=== PATIENT | female | born 1955 | race Caucasian/White ===

== ENCOUNTER 2017-10-17 15:06 | Emergency (ER) | payer MEDICAID ==
--- NOTE | 2017-10-17 15:51 | XRAY Preliminary Report ---
Exam: XR FINGER(S) RT IMPRESSION: No acute disease. [facility] SITE ID: [id number]
--- NOTE | 2017-10-17 15:54 | XRAY Report ---
EXAM: RIGHT FIRST Digit Radiography EXAM DATE: 10/17/2017 03:37 PM. CLINICAL HISTORY: Trauma, pain. COMPARISON: None. TECHNIQUE: 3 views. FINDINGS: Bones: Last exam. No definite fracture or other bone lesion. Joints: Mild degenerative changes in the first CMC joint. Soft Tissues: Unremarkable. IMPRESSION: No acute disease. [facility] Referring Provider Line: [phone] SITE ID: [id number]
[2017-10-17] MEDS ORDERED: LIDOCAINE 2% 10 ML MDV ONE (18:03)
[2017-10-17] MEDS ORDERED: TETANUS/DIPHTHERIA/PERTUSSIS 0.5 ML SYRINGE IM ONE ×2 (18:05→18:16)
--- NOTE | 2017-10-17 18:49 | ED Physician Documentation ---
History of Present Illness - Stated complaint Stated Complaint: L THUMB LAC - Chief complaint Chief Complaint: Ext Problem - History obtained from History obtained from: Patient (pt is here for evaluation of a right thumb crush injury and laceration. occured just prior to arrival while moving a table.) - History of Present Illness Timing: Prior to arrival Review of Systems Skin: reports: Laceration (s) Musculoskeletal: reports: Joint pain (right thumb), Joint swelling (right thumb) Neurologic: reports: Other (no numbness or tingling to the right hand.) PD PAST MEDICAL HISTORY - Past Medical History Past Medical History: Yes Endocrine/Autoimmune: HyPOthyroidism - Past Surgical History Past Surgical History: No - Present Medications Home Medications: Ambulatory Orders Medication Instructions Recorded Confirmed Cetirizine [ZyrTEC] 10 mg PO DAILY 10/17/17 10/17/17 Citalopram [CeleXA] 0 mg PO DAILY 10/17/17 10/17/17 Levothyroxine Sodium 175 mg PO DAILY 10/17/17 10/17/17 - Allergies Allergies/Adverse Reactions: Allergies Allergy/AdvReac Type Severity Reaction Status Date / Time No Known Drug Allergies Allergy Verified 10/17/17 15:19 - Social History Does the pt smoke?: No Smoking Status: Never smoker Does the pt drink ETOH?: Yes Does the pt have substance abuse?: No - Immunizations Immunizations: TDAP >10years/unknown - POLST Patient has POLST: No PD ED PE NORMAL - Vitals Vital signs reviewed: Yes - General General: Alert and oriented X 3, No acute distress - Cardiac Cardiac: Strong equal pulses (radial ) - Derm Derm: Other (3 lacerations to the pad of the right thumb. no active bleeding.) - Extremities Extremities: Other (TTP over the tip of the right thumb. pain with movement of the IP joint of the right thumb. ) - Neuro Neuro: Other (sensation intact to tlight touch to the right hand. ) Results - Vitals Vitals: Vital Signs - 24 hr 10/17/17 15:16 Temperature 36.8 C Heart Rate 71 Respiratory 16 Rate Blood Pressure 129/86 H O2 Saturation 98 Oxygen O2 Source Room air - Rads (name of study) right thumb Radiology: Final report received Procedures - Laceration (location) thumb #1 Length in cm: 2 Wound type: Linear Neurovascular status: Sensory intact, Motor intact Anesthesia: Lidocaine 1% Wound Preparation: Irrigated copiously NS Skin layer closure: Nylon, Size #-0 - enter number (5-0), Sutures - enter # (4) Other: Patient tolerated well, No complications, Dressing applied, Tetanus UTD thumb # 2 Length in cm: 3 Wound type: Linear Neurovascular status: Sensory intact, Motor intact Tendon involvement: Other Anesthesia: Lidocaine 1% Wound Preparation: Irrigated copiously NS Skin layer closure: Nylon, Size #-0 - enter number (5-0), Sutures - enter # (7) Other: Patient tolerated well, No complications, Dressing applied, Tetanus UTD Thumb # 3 Wound type: Linear Neurovascular status: Sensory intact, Motor intact Anesthesia: Lidocaine 1% Wound Preparation: Irrigated copiously NS Skin layer closure: Nylon, Size #-0 - enter number (5), Sutures - enter # (2) Other: Patient tolerated well, No complications, Dressing applied, Tetanus UTD PD MEDICAL DECISION MAKING - ED course Complexity details: d/w patient ED course: no fractures on the X-ray. lacerations closed as above. Pt given care instructions and return precautions. Departure - Departure Disposition: 01 Home, Self Care Clinical Impression: Laceration of thumb Condition: Good Instructions: ED Laceration Hand Follow-Up: Primary, care provider [Other] Comments: Keep the thumb covered for the next 24 hours then you can remove the bandage and wash your hands as normal. do not soak your hand. have the stitches removed in 10 days. Return to the ER for any new or worsening symptoms.
[2017-10-17 19:07] VITALS: BP 162/81
[2017-10-17] MEDS ORDERED: HYDROcod/ACETAM 5/325 MG TABLET PO STA (19:14)
[2017-10-17] MEDS ORDERED: HYDROcod/ACETAM 5/325 MG TABLET ONE (19:21)
== END 2017-10-17 19:17 | disposition home or self-care (01) ==
LOC: ED 15:06
DX: S61.012A Laceration without foreign body of left thumb without damage to nail, initial encounter (principal); W23.0XXA Caught, crushed, jammed, or pinched between moving objects, initial encounter; E03.9 Hypothyroidism, unspecified; Z23 Encounter for immunization
CPT/HCPCS: 12002; 73140; 90471; 90715; 99283; A9270

== ENCOUNTER 2017-11-01 16:06 | Emergency (ER) | payer MEDICAID ==
[2017-11-01 16:16] VITALS: BP 118/74
--- NOTE | 2017-11-01 16:30 | ED Physician Documentation ---
PD HPI WOUND RECHECK - Stated complaint Stated Complaint: SUTURE REMOVAL RT THUMB - Chief complaint Chief Complaint: Laceration - Histroy obtained from History obtained from: Patient - History of Present Illness Location: Right Hand (R thumb suture removal) Timing - onset: How many weeks ago (2) Pain level max: 0 Pain level now: 0 Associated symptoms: No: Fever, Redness, Swelling, Drainage, Pain Recently seen: Emergency Dept (sutures placed in the ED 2 weeks ago.) Review of Systems Constitutional: denies: Fever PD PAST MEDICAL HISTORY - Past Medical History Past Medical History: Yes Endocrine/Autoimmune: HyPOthyroidism - Past Surgical History Past Surgical History: No - Present Medications Home Medications: Ambulatory Orders Medication Instructions Recorded Confirmed Cetirizine [ZyrTEC] 10 mg PO DAILY 10/17/17 10/17/17 Citalopram [CeleXA] 0 mg PO DAILY 10/17/17 10/17/17 Levothyroxine Sodium 175 mg PO DAILY 10/17/17 10/17/17 - Allergies Allergies/Adverse Reactions: Allergies Allergy/AdvReac Type Severity Reaction Status Date / Time No Known Drug Allergies Allergy Verified 11/01/17 16:16 - Social History Does the pt smoke?: No Smoking Status: Never smoker Does the pt drink ETOH?: Yes Does the pt have substance abuse?: No - Immunizations Immunizations: TDAP >10years/unknown - POLST Patient has POLST: No PD ED PE NORMAL - Vitals Vital signs reviewed: Yes - General General: Alert and oriented X 3 - Derm Derm: Warm and dry - Extremities Extremities: Other (R thumb - 3 lacerations to the R thumb. Well healed. No signs of infection. NVI.) - Neuro Neuro: Alert and oriented X 3 Results - Vitals Vitals: Vital Signs - 24 hr 11/01/17 16:13 Temperature 36.3 C L Heart Rate 66 Respiratory 16 Rate Blood Pressure 118/74 O2 Saturation 97 Oxygen O2 Source Room air PD MEDICAL DECISION MAKING - ED course Complexity details: considered differential, d/w patient ED course: Sutures removed by RN. Tolerated well. Dressing applied. Wound care instructions given. Departure - Departure Disposition: 01 Home, Self Care Clinical Impression: Visit for suture removal Condition: Good Instructions: ED Wound Check Sutr Remove No Infec Follow-Up: your,doctor as needed [Other] Comments: Return if you worsen, especially for redness, swelling, or drainage from the wound. Discharge Date/Time: 11/01/17 16:43
== END 2017-11-01 16:43 | disposition home or self-care (01) ==
LOC: ED 16:06
DX: S61.011D Laceration without foreign body of right thumb without damage to nail, subsequent encounter (principal); X58.XXXD Exposure to other specified factors, subsequent encounter; E03.9 Hypothyroidism, unspecified
CPT/HCPCS: 99281; 99282

== ENCOUNTER 2019-02-12 14:42 | Outpatient (CLI) | payer MEDICARE ==
--- NOTE | 2019-02-13 09:00 | DEXA Report ---
Reason: ENCOUNTER FOR SCREENING FOR OSTEOPOROSIS Procedure Date: 02/12/2019 Accession Number: [id number] / [id number] Procedure: DEX - Dexa Spine and/or Hip CPT Code: FULL RESULT: EXAM: Dexa Spine and/or Hip DATE: 02/12/2019 3:15 PM CLINICAL HISTORY: ENCOUNTER FOR SCREENING FOR OSTEOPOROSIS TECHNIQUE: Dual energy x-ray absorptiometry (DXA) was performed on a [employer] System. Regions measured are the AP Spine, femoral neck, and if needed forearm. COMPARISON: None. In accordance with the International Society for Clinical Densitometry (ISCD) guidelines, data from previous exams may be reanalyzed using current recommendations and techniques. This is done to allow a more accurate basis for comparison with the current study. FINDINGS: The data for the lumbar spine is as follows: BMD (g/cm/cm) T-SCORE Z-SCORE REGION L1 0.983 -1.2 -0.2 L2 1.010 -1.6 -0.6 L3 1.019 -1.5 -0.5 L4 1.164 -0.3 0.7 TOTAL 1.050 -1.1 -0.1 NOTE: All evaluable vertebrae are used for classification The data for the hip is as follows: BMD (g/cm/cm) T-SCORE Z-SCORE REGION Neck 1.006 -0.2 0.8 TOTAL 0.931 -0.6 0.2 NOTE: The femoral neck or total proximal femur, whichever is lowest, is used for classification. IMPRESSION: THE WHO CLASSIFICATION BASED ON THE INTERNATIONAL REFERENCE STANDARD IS OSTEOPENIA. THE FRACTURE RISK IS INCREASED. RECOMMENDATION: Patients with diagnosis of osteoporosis or osteopenia should have regular bone mineral density assessment. For those eligible for Medicare, routine testing is allowed once every 2 years. Testing frequency can be increased for patients who have rapidly progressing disease or for those who are receiving medical therapy to restore bone mass. COMMENT: World Health Organization (WHO) definitions for osteoporosis and osteopenia: NORMAL BMD: T-score at -1.0 or higher, fracture risk is low OSTEOPENIA BMD: T-score between -1.0 and -2.5, fracture risk is increased. OSTEOPOROSIS BMD: T-score at -2.5 or lower, fracture risk is high. National Osteoporosis Foundation recommends: 1. Obtain adequate dietary calcium (at least 1200 mg per day) and vitamin D (400-800 international units per day). 2. Participate, as appropriate, in regular weightbearing and muscle-strengthening exercise. 3. Avoid tobacco use and reduce alcohol and caffeine intake. 4. For more detailed information see the website at www.NOF.org.
== END 2019-02-12 14:43 | disposition home or self-care (01) ==
LOC: DI 14:42
PROVIDERS: ATTEND Internal Medicine
DX: Z13.820 Encounter for screening for osteoporosis (principal); N95.8 Other specified menopausal and perimenopausal disorders; M85.89 Other specified disorders of bone density and structure, multiple sites
CPT/HCPCS: 77080

== ENCOUNTER 2019-07-03 18:34 | Outpatient (CLI) | payer MEDICARE | END 2019-07-03 18:35 | disposition EMS.NT | LOC: EMS 18:34 | PROVIDERS: ATTEND Surgery | DX: Z03.89 Encounter for observation for other suspected diseases and conditions ruled out (principal) ==

== ENCOUNTER 2022-04-03 15:51 | Outpatient (CLI) | payer MEDICARE | END 2022-04-03 15:52 | disposition critical access hospital (66) | LOC: EMS 15:51 | DX: S00.31XA Abrasion of nose, initial encounter (principal); S00.511A Abrasion of lip, initial encounter; S00.81XA Abrasion of other part of head, initial encounter; W01.0XXA Fall on same level from slipping, tripping and stumbling without subsequent striking against object, initial encounter; Y92.838 Other recreation area as the place of occurrence of the external cause | CPT/HCPCS: A0425; A0427 ==

== ENCOUNTER 2022-04-03 16:13 | Emergency (ER) | payer MEDICARE ==
--- NOTE | 2022-04-03 16:15 | ED Physician Documentation ---
PD HPI Fall - Stated complaint Stated Complaint: FALL - History obtained from History obtained from: Patient - History of Present Illness Mechanism of injury: Tripped Fall distance: Standing position Where injury occurred: Other (hoang,she tripped and fell on uneven walking surface.) Timing - onset: How many minutes ago (30), Today Injury(ies) location: Head, Face. No: Neck, Chest, Abdomen Review of Systems Constitutional: denies: Fever, Chills Nose: denies: Rhinorrhea / runny nose, Congestion Throat: denies: Sore throat Cardiac: denies: Chest pain / pressure, Palpitations Respiratory: denies: Dyspnea, Cough GI: denies: Abdominal Pain, Nausea, Vomiting, Diarrhea Musculoskeletal: reports: Joint pain (right great toe with recent fracture and i s in boot orthosis.) Neurologic: denies: Generalized weakness, Focal weakness, Numbness PD PAST MEDICAL HISTORY - Past Medical History Endocrine/Autoimmune: HyPOthyroidism - Past Surgical History Past Surgical History: No - Present Medications Home Medications: Ambulatory Orders Medication Instructions Recorded Confirmed Levothyroxine Sodium 175 mg PO DAILY 10/17/17 04/03/22 Duloxetine HCl [Cymbalta] 120 mg PO DAILY 04/03/22 04/03/22 - Allergies Allergies/Adverse Reactions: Allergies Allergy/AdvReac Type Severity Reaction Status Date / Time No Known Drug Allergies Allergy Verified 04/03/22 16:35 - Social History Does the pt smoke?: No Smoking Status: Never smoker Does the pt drink ETOH?: Yes Does the pt have substance abuse?: No - Immunizations Immunizations: TDAP >10years/unknown - POLST Patient has POLST: No PD ED PE NORMAL - Vitals Vital signs reviewed: Yes - General General: Alert and oriented X 3, No acute distress, Well developed/nourished - HEENT HEENT: PERRL, EOMI, Ears normal, Pharynx benign, Dentition benign (no noted chips nor subluxations, but she says the teeth "feel numb" to her. ), Other (abrasion bridge ofnose with tenderness.Also abrasion upper lip philtrum. Inner upperlip with abrasion. Inside upper lip with 1 cm lac does not need suturing. ) - Neck Neck: Supple, no meningeal sign, No bony TTP, No adenopathy - Cardiac Cardiac: RRR, No murmur - Respiratory Respiratory: Clear bilaterally, Other (no chestwall tenderness) - Abdomen Abdomen: Soft, Non tender - Back Back: No CVA TTP, No spinal TTP - Derm Derm: Normal color, Warm and dry, No rash - Extremities Extremities: No tenderness to palpate, Normal ROM s pain, No edema, No calf tenderness / cord - Neuro Neuro: Alert and oriented X 3, No motor deficit, No sensory deficit, Normal speech Results - Vitals Vitals: Vital Signs - 24 hr 04/03/22 04/03/22 04/03/22 16:19 16:55 17:45 Temperature 36.2 C L Heart Rate 73 87 75 Respiratory 18 17 17 Rate Blood Pressure 142/93 H 142/93 H 135/79 H O2 Saturation 93 97 99 Oxygen O2 Source Room air - Labs Labs: Laboratory Tests 04/03/22 04/03/22 16:22 16:22 WBC 19.0 H RBC 4.41 Hgb 13.7 Hct 42.6 MCV 96.6 MCH 31.1 H MCHC 32.2 RDW 12.8 Plt Count 188 MPV 10.8 Neut # (Auto) Not Reportable Lymph # (Auto) Not Reportable Weston # (Auto) Not Reportable Eos # (Auto) Not Reportable Baso # (Auto) Not Reportable Absolute Nucleated RBC Not Reportable Total Counted 100 Band Neuts % (Manual) 0 Reactive Lymphs % (Man) 10 Abnorm Lymph % (Manual) 0 Nucleated RBC % Not Reportable Neutrophils # (Manual) 5.3 Lymphocytes # (Manual) 12.7 H Monocytes # (Manual) 1.0 Eosinophils # (Manual) 0.0 Basophils # (Manual) 0.0 Differential Comment MANUAL DIFFERENTIAL WBC Morphology NORMAL APPEARANCE Platelet Estimate NORMAL (130-450,000) Platelet Morphology NORMAL APPEARANCE RBC Morph Micro Appear NORMAL APPEARANCE Sodium 138 Potassium 3.6 Chloride 101 Carbon Dioxide 23 Anion Gap 14.0 H BUN 12 Creatinine 0.7 Estimated GFR (MDRD) 83 L Glucose 99 Calcium 9.0 Ethyl Alcohol 173.2 - Rads (name of study) head CT Radiology: Prelim report reviewed (no ICH. No actue process.), See rad report cervical CT Radiology: Prelim report reviewed (arthritic changes. No acute fractures. ), See rad report maxilofacial CT Radiology: Prelim report reviewed (nasal fracture nondisplaced. left maxillary sinus undeveloped and small. ), See rad report PD MEDICAL DECISION MAKING - ED course Complexity details: reviewed results (nasal fracture on CT. No other fractures. ), considered differential, d/w patient, d/w family () Departure - Departure Disposition: 01 Home, Self Care Clinical Impression: Nasal fracture Qualifiers: Encounter type: initial encounter Fracture type: closed Qualified Code(s): S02.2XXA - Fracture of nasal bones, initial encounter for closed fracture Facial abrasion Qualifiers: Encounter type: initial encounter Qualified Code(s): S00.81XA - Abrasion of other part of head, initial encounter Fall from slip, trip, or stumble Qualifiers: Encounter type: initial encounter Qualified Code(s): W01.0XXA - Fall on same level from slipping, tripping and stumbling without subsequent striking against object, initial encounter Condition: Stable Record reviewed to determine appropriate education?: Yes Instructions: ED Abrasion, ED Fx Nasal Conf W X Ray Comments: MildYour CT scan showed some old to moderate arthritis in the neck but no fractures. The head component did not show any fractures or bleeding or swelling. On the facial component of the CT scan, there was some nasal fractures which are nondisplaced and should be able to just heal and location. No other acute process. The abrasion should heal with just cleaning soap and water and ointment once or twice daily. Recheck if signs of infection. Tylenol or ibuprofen if needed for pains. Discharge Date/Time: 04/03/22 17:46
--- OUTSIDE RECORDS SUMMARY | 2022-04-03 16:20 | EXTERNAL MEDICAL SUMMARY RPT | Continuity of Care Document ---
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 Encounters No information. Medications date description facility 20220328 levothyroxine All 20220328 oxycodone-acetaminophen All 20220328 levothyroxine All 20220328 oxycodone-acetaminophen All 20220328 levothyroxine All 20220328 oxycodone-acetaminophen All Problems date description facility 20220328 Other fracture of right lesser toe(s), initial encounter for All closed fracture 20220328 Podiatry Consultation All 20220328 Contusion of right foot All 20220328 Closed fracture proximal phalanx, toe All 20220328 XR FOOT 2 VIEWS All 20220328 Contusion of right foot, initial encoun ter All 20220328 Contusion of foot All Results No information. Vital Signs date measurement value source 20220328 weight_standard 175 lb 20220328 weight_metric 79.38 kg 20220328 temperature_standard 97.9 F 20220328 temperature_metric 36.61 C 20220328 respiration_rate 16 /min 20220328 height_standard 72 in 20220328 height_metric 182.88 cm 20220328 heart_rate 86 /min 20220328 BP_systolic 155 mm[Hg] 20220328 BP_diastolic 93 mm[Hg] 20220328 BMI 23.82 kg/m2 20220328 weight_standard 175 lb 20220328 weight_metric 79.38 kg 20220328 temperature_standard 97.9 F 20220328 temperature_metric 36.61 C 20220328 respiration_rate 16 /min 20220328 height_standard 72 in 20220328 height_metric 182.88 cm 20220328 heart_rate 86 /min 20220328 BP_systolic 155 mm[Hg] 20220328 BP_diastolic 93 mm[Hg] 20220328 BMI 23.82 kg/m2 20220328 weight_standard 175 lb 20220328 weight_metric 79.38 kg 20220328 temperature_standard 97.9 F 20220328 temperature_metric 36.61 C 20220328 respiration_rate 16 /min 20220328 height_standard 72 in 20220328 height_metric 182.88 cm 20220328 heart_rate 86 /min 20220328 BP_systolic 155 mm[Hg] 20220328 BP_diastolic 93 mm[Hg] 20220328 BMI 23.82 kg/m2
[2022-04-03 16:42] LABS: BASOPHILS % (AUTO) 0.3 %; EOSINOPHILS % (AUTO) 0.4 %; HCT - HEMATOCRIT 42.6 % (37.0-47.0); HGB - HEMOGLOBIN 13.7 g/dL (12.0-16.0); LYMPHOCYTES % (AUTO) 71.7 %; MEAN CORPUSCULAR HEMOGLOBIN 31.1 pg (27.0-31.0); MEAN CORPUSCULAR HGB CONC 32.2 g/dL (32.0-36.0); MEAN CORPUSCULAR VOLUME 96.6 fL (81.0-99.0); MEAN PLATELET VOLUME 10.8 fL (7.9-10.8); MONOCYTES % (AUTO) 5.1 %; NEUTROPHILS % (AUTO) 22.2 %; PLT - PLATELET COUNT 188 10^3/uL (130-450); RED BLOOD COUNT 4.41 10^6/uL (4.20-5.40); RED CELL DISTRIBUTION WIDTH 12.8 % (12.0-15.0)
[2022-04-03 16:49] LABS: ABNORMAL LYMPHS % (MANUAL) 0 %; BAND NEUTROPHILS % (MANUAL) 0 %
[2022-04-03 16:52] LABS: CREATININE 0.7 mg/dL (0.4-1.0); ETOH - ETHANOL 173.2 mg/dL; POTASSIUM 3.6 mmol/L (3.5-5.0)
[2022-04-03] MEDS ORDERED: BACITRACIN ZINC OINT 1 PACKET TOP STA (17:07)
--- NOTE | 2022-04-03 17:07 | CT Report ---
PROCEDURE: MAXILLOFACIAL WO INDICATIONS: fall onto face: face/head/neck pain TECHNIQUE: Noncontrast 1.5 mm thick axial images acquired from the mandible through the frontal sinuses, with co jessica and sagittal reformatting. For radiation dose reduction, the following was used: automated ex posure control, adjustment of mA and/or kV according to patient size. COMPARISON: Correlation is made with the accompanying head CT and cervical spine CT, 04/03/2022. FINDINGS: Image quality: Excellent. Bones and teeth: Mildly displaced nasal bone fractures are seen. Chronic leftward nasal septal deviation is seen. Orbital garduno are intact. Sinus garduno show no fracture or deformity. Visualized portions of the man dible demonstrate no fractures or subluxation. Zygomatic arches are intact. Pterygoid plates are in tact. Visualized portions of the skull base and auditory canals are intact. Sinuses: The left maxillary sinus is abnormal, which is small in size and completely opacified. The p aranasal sinuses are otherwise unremarkable. No significant abnormal fluid can be seen within the mas toid air cells. Soft tissues: Mild soft tissue swelling is seen involving the nose. Abnormal fullness is seen within the right vallecula, as on series 3 image 21. No enlarged lymph node s. No soft tissue lacerations or debris. Vascular: Visualized vascular structures appear normal in the absence of contrast. Bony vascular fo ramina and canals are intact. IMPRESSION: Mildly displaced nasal bone fractures, with associated soft tissue swelling. Chronic left maxillary sinus disease There is abnormal fullness seen within the right vallecula. Retained secretions is suspected. If ther e is concern for a mass at this site, please consider direct visualization via laryngoscopy. Reviewed by: Leoncio Silvestre MD on 04/03/2022 4:06 PM BRYCE Approved by: Leoncio Silvestre MD on 04/03/2022 4:06 PM BRYCE Station ID: [id number]
[2022-04-03 17:08] LABS: LYMPHOCYTES # (MANUAL) 12.7 10^3/uL (1.5-3.5); LYMPHOCYTES % (MANUAL) 57 %; NEUTROPHILS # (MANUAL) 5.3 10^3/uL (1.5-6.6); REACTIVE LYMPHS % (MANUAL) 10 %
--- NOTE | 2022-04-03 17:08 | CT Report ---
PROCEDURE: HEAD WO INDICATIONS: fall onto face: face/head/neck pain TECHNIQUE: Noncontrast 4.5 mm thick angled axial sections acquired from the foramen magnum to the vertex. For r adiation dose reduction, the following was used: automated exposure control, adjustment of mA and/or kV according to patient size. COMPARISON: Correlation is made with the accompanying maxillofacial CT and cervical spine CT, 022. FINDINGS: Image quality: Excellent. CSF spaces: Basal cisterns are patent. No extra-axial fluid collections. Ventricles are normal in size and shape. Brain: No midline shift. No intracranial masses or hemorrhage. West-white matter interface is norm al. Skull and face: Mildly displaced nasal bone fractures are seen, with nasal swelling. Sinuses: There is complete opacification of the left maxillary sinus. The left maxillary sinus is sm all in size. Visualized sinuses and mastoids are otherwise clear. IMPRESSION: Nasal bone fractures with nasal soft tissue swelling. Chronic left maxillary sinus disease. No intracranial hemorrhage is seen. No significant intracranial abnormality is seen. Reviewed by: Leoncio Silvestre MD on 04/03/2022 4:07 PM BRY[facility] Approved by: Leoncio Silvestre MD on 04/03/2022 4:07 PM BRYCE Station ID: [id number]
[2022-04-03 17:09] LABS: RBC MORPHOLOGY (MULTIPLE) NORMAL APPEARANCE (NORMAL)
[2022-04-03 17:10] LABS: DIFFERENTIAL COMMENT MANUAL DIFFERENTIAL; PLATELET ESTIMATE, MANUAL NORMAL (130-450,000) (NORMAL); PLATELET MORPHOLOGY NORMAL APPEARANCE (NORMAL); WBC MORPHOLOGY (MULTIPLE) NORMAL APPEARANCE (NORMAL)
--- NOTE | 2022-04-03 17:10 | CT Report ---
PROCEDURE: CERVICAL SPINE WO INDICATIONS: fall onto face: face/head/neck pain TECHNIQUE: Noncontrast 3 mm thick sections acquired from the skull base to the T4 level. Sagittal and coronal r eformats were then constructed. For radiation dose reduction, the following was used: automated exp osure control, adjustment of mA and/or kV according to patient size. COMPARISON: Correlation is made with the accompanying head CT and maxillofacial CT, 04/03/2022. FINDINGS: Image quality: Excellent. Bones: No fractures or dislocations. Visualized superior ribs are intact. There is at least moderate disc space narrowing seen at C3-C4. Mild to moderate disc space narrowing is seen at C5-C6. At least moderate disc space narrowing is seen at C6-C7, T1-T2, and T2-T3. Soft tissues: Prevertebral soft tissues are normal in thickness. No paravertebral hematomas. No ap ical pneumothoraces. IMPRESSION: No acute cervical spine fracture can be seen. Several levels of significant degenerative change can be seen. Reviewed by: Leoncio Silvestre MD on 04/03/2022 4:09 PM BRYCE Approved by: Leoncio Silvestre MD on 04/03/2022 4:09 PM BRYCE Station ID: [id number]
[2022-04-03] MEDS ORDERED: KETOROLAC 15 MG/ML VIAL IVP STA (17:29)
[2022-04-03 17:46] VITALS: BP 135/79
== END 2022-04-03 17:46 | disposition home or self-care (01) ==
LOC: EDUNIT# → ED 16:13
DX: S02.2XXA Fracture of nasal bones, initial encounter for closed fracture (principal); S00.81XA Abrasion of other part of head, initial encounter; W01.198A Fall on same level from slipping, tripping and stumbling with subsequent striking against other object, initial encounter; Y92.838 Other recreation area as the place of occurrence of the external cause
CPT/HCPCS: 36415; 70450; 70486; 72125; 80048; 85025; 96374; 99282; 99284; A9270; G0480; 80320

== ENCOUNTER 2022-11-02 10:19 | Outpatient (CLI) | payer MEDICARE ==
--- NOTE | 2022-11-02 17:37 | DEXA Report ---
PROCEDURE: Dexa Spine and/or Hip INDICATIONS: POST MENOPAUSAL TECHNIQUE: Dual energy x-ray absorptiometry (DXA) was performed on a [employer] System. Regions measur ed are the AP Spine, femoral neck, and if needed forearm. COMPARISON: 02/12/19. FINDINGS: Lumbar Spine: Bone Mineral Density 1.098 g/cm/cm,T score -0.7. There is interval 4.6% increase in total lumbar s pine bone mineral density. Left Femoral Neck: Bone Mineral Density 0.965 g/cm/cm, T score -0.5. Left Hip: Bone Mineral Density 0.925 g/cm/cm,T score -0.7. There is interval 0.6% decrease in total left hip b one mineral density. (T score greater or equal to -1.0: NORMAL) (T score from -1.1 to -2.4: OSTEOPENIA) (T score less than or equal to -2.5 to: OSTEOPOROSIS) Impression: Normal bone mineral density. Patients with diagnosis of osteoporosis or osteopenia should have regular bone mineral density assess ment. For those eligible for Medicare, routine testing is allowed once every 2 years. Testing frequ ency can be increased for patients who have rapidly progressing disease or for those who are receivin g medical therapy to restore bone mass. Reviewed by: Torrey Martinez MD on 11/02/2022 5:36 PM PST Approved by: Torrey Martinez MD on 11/02/2022 5:36 PM PST Station ID: [id number]
== END 2022-11-02 10:20 | disposition home or self-care (01) ==
LOC: DI 10:19
PROVIDERS: ATTEND Nurse Practitioner Family
DX: Z78.0 Asymptomatic menopausal state (principal)